=== PATIENT | male | born 1945 | race Caucasian/White ===

== ENCOUNTER 2017-08-19 12:56 | Emergency (ER) | payer MEDICARE ==
[~2017-08-19] VITALS: Ht 172.7 cm; Wt 93.2 kg
[~2017-08-19 12:56] MED LIST: OTC COUGH MED
[2017-08-19] MEDS ORDERED: COAL21.2 TP (13:31)
[2017-08-19 13:47] LABS: GLUCOSE,POINT OF CARE 100 MG/DL (70-110)
[2017-08-19] MEDS ORDERED: TOBRAMYCIN/DEXAMETHASONE 5 ML OPHTHALMIC SUSPENSION OD ONE (14:15)
[2017-08-19 15:04] LABS: BASOPHILS % (AUTO) 0.8 % (0.0-2.0); EOSINOPHILS % (AUTO) 2.3 % (1.0-6.0); HEMATOCRIT 41.3 % (41-53); LYMPHOCYTES # (AUTO) 1.5 K/uL (1.0-4.8); LYMPHOCYTES % (AUTO) 19.7 % (22.0-44.0); MEAN CORPUSCULAR HEMOGLOBIN 29.8 pg (26.0-34.0); MEAN CORPUSCULAR HGB CONC 33.9 G/dL (31.0-37.0); MEAN CORPUSCULAR VOLUME 88 fL (80-100); MONOCYTES # (AUTO) 0.5 K/uL (0.1-1.0); MONOCYTES % (AUTO) 6.3 % (2.0-9.0); NEUTROPHILS # (AUTO) 5.3 K/uL (1.8-7.7); NEUTROPHILS % (AUTO) 70.9 % (40.0-70.0); PLATELET COUNT (AUTO) 282 K/uL (150-450); RED BLOOD CELL COUNT(AUTO) 4.69 MIL/uL (4.50-5.90); RED CELL DISTRIBUTION WIDTH 14.8 % (11.5-14.5)
[2017-08-19 15:09] LABS: B-TYPE NATRIURETIC PEPTIDE 30 pg/mL (0-100)
[2017-08-19 15:10] LABS: ANION GAP 4 mmol/L (8-16); CARBON DIOXIDE 30 mmol/L (22-29); CHLORIDE 105 mmol/L (98-107); CREATININE 1.53 mg/dL (0.60-1.30); GLOMERULAR FILTR. RATE CALC 45 mL/min (>60); GLUCOSE,RANDOM 103 mg/dL (70-110); POTASSIUM 4.5 mmol/L (3.5-5.1); SODIUM SERUM 139 mmol/L (136-145); UREA NITROGEN, BLOOD 19 mg/dL (7-18)
[2017-08-19 15:15] LABS: PROTHROMBIN TIME 10.9 SEC (9.4-11.6)
[2017-08-19 15:16] LABS: ALANINE AMINOTRANSFERASE 32 U/L (12-78); ALBUMIN 3.7 g/dL (3.4-5.0); ALKALINE PHOSPHATASE 65 U/L (46-116); ASPARTATE AMINOTRANSFERASE 29 U/L (15-37); BILIRUBIN,TOTAL 0.6 mg/dL (0.1-1.0); CREATINE KINASE, TOTAL 70 U/L (39-308); TOTAL PROTEIN, SERUM 8.4 g/dL (6.4-8.2)
[2017-08-19] MEDS ORDERED: LISINOPRIL 10 MG TABLET PO ONE ×2 (15:30→16:45)
[2017-08-19 15:59] LABS: APPEARANCE,URINE CLEAR (CLEAR); BILIRUBIN,URINE NEGATIVE (NEGATIVE); GLUCOSE, URINE (UA) NEGATIVE (NEGATIVE); KETONES,URINE NEGATIVE (NEGATIVE); LEUKOCYTE ESTERASE ,URINE NEGATIVE (NEGATIVE); NITRATE,URINE NEGATIVE (NEGATIVE); OCCULT BLOOD,URINE SMALL (NEGATIVE); PROTEIN,URINE POS 1+ (NEGATIVE); UROBILINOGEN,URINE 0.2 mg/dL (<=1.0)
[2017-08-19 16:30] LABS: BACTERIA,URINE Few /HPF (None Seen); SQUAMOUS EPITHELIAL CELL,UR Rare /LPF (None Seen); WBC,URINE None Seen /HPF (0-5)
[2017-08-19] MEDS ORDERED: LABETALOL HCL 5 MG/ML 20 ML VIAL IVP ONE (16:45)
[2017-08-19 18:13] VITALS: BP 177/111
== END 2017-08-19 18:35 | disposition home or self-care (01) ==
LOC: EMS 13:00
DX: S05.01XA Injury of conjunctiva and corneal abrasion without foreign body, right eye, initial encounter (principal); I10 Essential (primary) hypertension; L40.9 Psoriasis, unspecified; Z79.899 Other long term (current) drug therapy; X58.XXXA Exposure to other specified factors, initial encounter; Y93.89 Activity, other specified; Y92.89 Other specified places as the place of occurrence of the external cause; Y99.8 Other external cause status
CPT/HCPCS: 36415; 71010; 80053; 81001; 82550; 82962; 83880; 84484; 85025; 85610; 85730; 93005; 96374; 99285; J3490

== ENCOUNTER 2017-10-17 20:18 | Emergency (ER) | payer MEDICARE ==
[~2017-10-17] VITALS: Ht 172.7 cm; Wt 95.5 kg
[~2017-10-17 20:18] MED LIST changes: +COAL21.2 TP
[2017-10-17] MEDS ORDERED: PROPRANOLOL HCL 10 MG TABLET PO ONE (21:15)
[2017-10-17] MEDS ORDERED: TERBINAFINE HCL 1% 30 GM CREAM TP ONE (21:15)
[2017-10-17 21:37] LABS: BASOPHILS % (AUTO) 0.9 % (0.0-2.0); EOSINOPHILS % (AUTO) 1.2 % (1.0-6.0); HEMATOCRIT 37.9 % (41-53); HEMOGLOBIN 12.8 g/dL (13.5-17.5); LYMPHOCYTES # (AUTO) 0.5 K/uL (1.0-4.8); LYMPHOCYTES % (AUTO) 6.1 % (22.0-44.0); MEAN CORPUSCULAR HEMOGLOBIN 28.9 pg (26.0-34.0); MEAN CORPUSCULAR HGB CONC 33.9 G/dL (31.0-37.0); MEAN CORPUSCULAR VOLUME 85 fL (80-100); MONOCYTES # (AUTO) 0.9 K/uL (0.1-1.0); MONOCYTES % (AUTO) 11.9 % (2.0-9.0); NEUTROPHILS % (AUTO) 79.9 % (40.0-70.0); PLATELET COUNT (AUTO) 234 K/uL (150-450); RED BLOOD CELL COUNT(AUTO) 4.44 MIL/uL (4.50-5.90); RED CELL DISTRIBUTION WIDTH 14.2 % (11.5-14.5)
[2017-10-17 21:47] LABS: CALCIUM, TOTAL 8.1 mg/dL (8.8-10.5); CREATININE 1.54 mg/dL (0.60-1.30); POTASSIUM 3.7 mmol/L (3.5-5.1)
[2017-10-17 21:52] LABS: ALBUMIN 3.4 g/dL (3.4-5.0); BILIRUBIN,TOTAL 0.4 mg/dL (0.1-1.0); TOTAL PROTEIN, SERUM 7.4 g/dL (6.4-8.2)
[2017-10-17] MEDS ORDERED: CEPHALEXIN MONOHYDRATE 500 MG CAPSULE PO ONE (22:30)
[2017-10-17] MEDS ORDERED: HYDROCHLOROTHIAZIDE 25 MG TABLET PO ONE (23:15)
[2017-10-18] MEDS ORDERED: LISINOPRIL 10 MG TABLET PO ONE ×2 (00:45)
[2017-10-18] MEDS ORDERED: PROPRANOLOL HCL 10 MG TABLET PO ONE (00:45)
[2017-10-18] MEDS ORDERED: PROPRANOLOL HCL 40 MG TABLET PO ONE (01:00)
[2017-10-18 07:59] VITALS: BP 130/86
== END 2017-10-18 09:22 | disposition home or self-care (01) ==
LOC: EMS 20:19
DX: N39.0 Urinary tract infection, site not specified (principal); L40.9 Psoriasis, unspecified; B37.2 Candidiasis of skin and nail; I10 Essential (primary) hypertension; F12.90 Cannabis use, unspecified, uncomplicated
CPT/HCPCS: 99284

== ENCOUNTER 2017-10-21 13:56 | Emergency (ER) | payer MEDICARE ==
[~2017-10-21] VITALS: Ht 172.7 cm; Wt 93.2 kg
[2017-10-21 14:42] LABS: BASOPHILS % (AUTO) 0.8 % (0.0-2.0); EOSINOPHILS % (AUTO) 2.8 % (1.0-6.0); HEMATOCRIT 39.8 % (41-53); HEMOGLOBIN 13.3 g/dL (13.5-17.5); LYMPHOCYTES # (AUTO) 1.3 K/uL (1.0-4.8); MEAN CORPUSCULAR HEMOGLOBIN 28.9 pg (26.0-34.0); MEAN CORPUSCULAR HGB CONC 33.5 G/dL (31.0-37.0); MEAN CORPUSCULAR VOLUME 86 fL (80-100); MONOCYTES # (AUTO) 0.7 K/uL (0.1-1.0); NEUTROPHILS # (AUTO) 2.3 K/uL (1.8-7.7); NEUTROPHILS % (AUTO) 51.4 % (40.0-70.0); PLATELET COUNT (AUTO) 237 K/uL (150-450); RED BLOOD CELL COUNT(AUTO) 4.62 MIL/uL (4.50-5.90); RED CELL DISTRIBUTION WIDTH 14.2 % (11.5-14.5)
[2017-10-21 14:51] LABS: CALCIUM, TOTAL 8.6 mg/dL (8.8-10.5); CREATININE 1.65 mg/dL (0.60-1.30); POTASSIUM 4.1 mmol/L (3.5-5.1)
[2017-10-21 14:57] LABS: ALBUMIN 3.3 g/dL (3.4-5.0); BILIRUBIN,TOTAL 0.3 mg/dL (0.1-1.0); TOTAL PROTEIN, SERUM 7.5 g/dL (6.4-8.2)
[2017-10-21 15:26] LABS: INFLUENZA TYPE A NEGATIVE FOR TYPE A (NEGATIVE); INFLUENZA TYPE B NEGATIVE FOR TYPE B (NEGATIVE)
[2017-10-21] MEDS: IPRATROPIUM BROMIDE 0.5 MG/2.5 ML NEB SOLUTION NEB ONE (16:08)
[2017-10-21] MEDS: ALBUTEROL SULFATE 2.5 MG/0.5 ML NEB SOLUTION NEB ONE (16:08)
[2017-10-21] MEDS: ALBUTEROL SULFATE HFA 90 MCG/PUFF 8 GM INHALER IH ONE (16:09)
[2017-10-21 16:23] VITALS: BP 147/89
[2017-10-21] MEDS: OSELTAMIVIR PHOSPHATE 75 MG CAPSULE PO ONE (16:31)
== END 2017-10-21 16:56 | disposition home or self-care (01) ==
LOC: EMS 13:58
DX: J06.9 Acute upper respiratory infection, unspecified (principal); I10 Essential (primary) hypertension
CPT/HCPCS: 71046; 87040; 87804; 93005; 94640; 99285; J3535

== ENCOUNTER 2018-10-23 11:04 | Emergency (ER) | payer MEDICARE, MEDICAID ==
[~2018-10-23] VITALS: Ht 172.7 cm; Wt 86.5 kg
[2018-10-23] MEDS ORDERED: CloNIDine HCL 0.2 MG TABLET PO ONE (12:15)
[2018-10-23] MEDS ORDERED: HYDROCODONE/ACETAMINOPHEN 5-325 MG TABLET PO ONE ×2 (13:45→16:45)
[2018-10-23 19:27] VITALS: BP 133/79
== END 2018-10-23 20:11 | disposition home or self-care (01) ==
LOC: EMS 11:05
DX: S01.01XA Laceration without foreign body of scalp, initial encounter (principal); I10 Essential (primary) hypertension; F12.90 Cannabis use, unspecified, uncomplicated; Z59.0 Homelessness; W01.0XXA Fall on same level from slipping, tripping and stumbling without subsequent striking against object, initial encounter; Y93.89 Activity, other specified; Y92.89 Other specified places as the place of occurrence of the external cause; Y99.8 Other external cause status
CPT/HCPCS: 12002; 70450

== ENCOUNTER 2018-11-29 14:54 | Emergency (ER) | payer MEDICARE, MEDICAID ==
[~2018-11-29] VITALS: Ht 172.7 cm; Wt 93.2 kg
[2018-11-29 15:48] VITALS: BP 154/56
== END 2018-11-29 15:57 | disposition home or self-care (01) ==
LOC: EMS 14:54
DX: S01.01XD Laceration without foreign body of scalp, subsequent encounter (principal); I10 Essential (primary) hypertension; F12.90 Cannabis use, unspecified, uncomplicated; Z48.02 Encounter for removal of sutures; X58.XXXD Exposure to other specified factors, subsequent encounter

== ENCOUNTER 2019-07-30 18:41 | Emergency (ER) | payer MEDICARE, MEDICAID ==
[~2019-07-30] VITALS: Ht 175.3 cm; Wt 86.4 kg
[2019-07-30] MEDS ORDERED: LIDOCAINE 5% TRANSDERMAL PATCH TD ONE (23:00)
[2019-07-30] MEDS ORDERED: IBUPROFEN 600 MG TABLET PO ONE (23:00)
[2019-07-30 23:44] VITALS: BP 145/80
== END 2019-07-30 23:45 | disposition home or self-care (01) ==
LOC: EMS 18:43
DX: S40.012A Contusion of left shoulder, initial encounter (principal); M12.812 Other specific arthropathies, not elsewhere classified, left shoulder; I10 Essential (primary) hypertension; F12.90 Cannabis use, unspecified, uncomplicated; Z59.0 Homelessness; X58.XXXA Exposure to other specified factors, initial encounter; Y93.89 Activity, other specified; Y92.89 Other specified places as the place of occurrence of the external cause; Y99.8 Other external cause status

== ENCOUNTER 2020-08-23 13:19 | Inpatient (IN) | payer MEDICARE, MEDICAID ==
[~2020-08-23] VITALS: Ht 172.7 cm; Wt 87.8 kg
[2020-08-23] MEDS ORDERED: ACETAMINOPHEN 325 MG TABLET PO ONE (14:15)
[2020-08-23 15:26] LABS: BASOPHILS % (AUTO) 0.8 % (0.0-2.0); EOSINOPHILS % (AUTO) 0.8 % (1.0-6.0); HEMATOCRIT 37.5 % (41-53); HEMOGLOBIN 12.5 g/dL (13.5-17.5); LYMPHOCYTES # (AUTO) 0.5 K/uL (1.0-4.8); LYMPHOCYTES % (AUTO) 4.9 % (22.0-44.0); MEAN CORPUSCULAR HEMOGLOBIN 29.8 pg (26.0-34.0); MEAN CORPUSCULAR HGB CONC 33.2 G/dL (31.0-37.0); MEAN CORPUSCULAR VOLUME 90 fL (80-100); MONOCYTES # (AUTO) 0.7 K/uL (0.1-1.0); MONOCYTES % (AUTO) 6.8 % (2.0-9.0); NEUTROPHILS # (AUTO) 8.9 K/uL (1.8-7.7); PLATELET COUNT (AUTO) 260 K/uL (150-450); RED BLOOD CELL COUNT(AUTO) 4.18 MIL/uL (4.50-5.90); RED CELL DISTRIBUTION WIDTH 13.8 % (11.5-14.5)
[2020-08-23 15:28] LABS: NEUTROPHILS % (AUTO) 86.7 % (40.0-70.0)
[2020-08-23 15:29] LABS: COVID AG,FIA SOURCE NASOPHARYNGEAL
[2020-08-23 15:36] LABS: CALCIUM, TOTAL 8.4 mg/dL (8.8-10.5); CREATININE 1.93 mg/dL (0.60-1.30)
[2020-08-23 15:40] LABS: PROTHROMBIN TIME 11.1 SEC (9.4-11.6)
[2020-08-23 15:43] LABS: ALBUMIN 3.5 g/dL (3.4-5.0); BILIRUBIN,TOTAL 0.5 mg/dL (0.1-1.0); TOTAL PROTEIN, SERUM 7.9 g/dL (6.4-8.2)
[2020-08-23] MEDS ORDERED: SODIUM CHLORIDE 0.9% 500 ML IV ONE (16:00)
[2020-08-23 16:05] LABS: INFLUENZA TYPE A NEGATIVE FOR TYPE A (NEGATIVE); INFLUENZA TYPE B NEGATIVE FOR TYPE B (NEGATIVE)
[2020-08-23] MEDS ORDERED: PIPERACILLIN SODIUM/TAZOBACTAM 2.25 GM in DEXTROSE 5%-WATER 50 ML IV SCH (16:30)
[2020-08-23] MEDS ORDERED: VANCOMYCIN HCL 1.5 GM in DEXTROSE 5%-WATER 250 ML IV ONE (17:00)
[2020-08-23] MEDS ORDERED: MORPHINE SULFATE 2 MG/ML SYRINGE IVP PRN (17:45)
[2020-08-23] MEDS ORDERED: ONDANSETRON HCL 4 MG/2 ML VIAL IVP PRN (17:45)
[2020-08-23] MEDS ORDERED: IPRATROPIUM BROMIDE 0.5 MG/2.5 ML NEB SOLUTION NEB PRN (17:45)
[2020-08-23] MEDS ORDERED: SODIUM CHLORIDE 0.9% 1,000 ML IV ONE (17:45)
[2020-08-23] MEDS ORDERED: BISACODYL 10 MG RECTAL RECTAL SUPPOSITORY PR PRN (17:45)
[2020-08-23] MEDS ORDERED: HYDROCODONE/ACETAMINOPHEN 5-325 MG TABLET PO PRN (17:45)
[2020-08-23] MEDS ORDERED: MAGNESIUM HYDROXIDE SUSPENSION 30 ML UDCUP PO PRN (17:45)
[2020-08-23] MEDS ORDERED: ALBUTEROL SULFATE 2.5 MG/0.5 ML NEB SOLUTION NEB PRN (17:45)
[2020-08-23] MEDS ORDERED: ACETAMINOPHEN 325 MG TABLET PO PRN (17:45)
[2020-08-23] MEDS ORDERED: ZOLPIDEM TARTRATE 5 MG TABLET PO PRN (17:45)
[2020-08-23] MEDS ORDERED: INFLUENZA VIRUS VACCINE QVS 2020-21 (6MO+)/PF 60 MCG/0.5 ML SYRINGE IM ONE (18:00)
[2020-08-23] MEDS ORDERED: PNEUMOCOCCAL VACCINE POLYVALENT 0.5 ML VIAL [PPSV23] IM ONE (18:00)
[2020-08-23 18:02] VITALS: BP 175/94
[2020-08-23 20:30] VITALS: BP 157/84
[2020-08-23] MEDS: DOCUSATE SODIUM 100 MG CAPSULE PO SCH (20:34)
[2020-08-23] MEDS: AZITHROMYCIN 500 MG/NS 250 ML IV SCH (22:35)
[2020-08-23] MEDS: HEPARIN SODIUM,PORCINE 5,000 UNITS/ML VIAL SQ SCH (23:13)
[2020-08-24] MEDS ORDERED: AmLODIPine BESYLATE 10 MG TABLET PO ONE (00:45)
[2020-08-24 00:55] VITALS: BP 184/92
[2020-08-24] MEDS: CefTRIAXone 1 GM/DEXTROSE 50 ML IV SCH (02:11)
[2020-08-24 05:45] VITALS: BP 146/77
[2020-08-24 06:37] LABS: BASOPHILS % (AUTO) 1.2 % (0.0-2.0); EOSINOPHILS % (AUTO) 12.3 % (1.0-6.0); HEMATOCRIT 33.7 % (41-53); HEMOGLOBIN 11.3 g/dL (13.5-17.5); LYMPHOCYTES # (AUTO) 1.3 K/uL (1.0-4.8); LYMPHOCYTES % (AUTO) 16.8 % (22.0-44.0); MEAN CORPUSCULAR HEMOGLOBIN 30.3 pg (26.0-34.0); MEAN CORPUSCULAR HGB CONC 33.6 G/dL (31.0-37.0); MEAN CORPUSCULAR VOLUME 90 fL (80-100); MONOCYTES # (AUTO) 0.8 K/uL (0.1-1.0); MONOCYTES % (AUTO) 10.6 % (2.0-9.0); NEUTROPHILS # (AUTO) 4.7 K/uL (1.8-7.7); NEUTROPHILS % (AUTO) 59.1 % (40.0-70.0); PLATELET COUNT (AUTO) 228 K/uL (150-450); RED BLOOD CELL COUNT(AUTO) 3.73 MIL/uL (4.50-5.90); RED CELL DISTRIBUTION WIDTH 14.1 % (11.5-14.5)
[2020-08-24 07:03] LABS: ALBUMIN 2.9 g/dL (3.4-5.0); BILIRUBIN,TOTAL 0.5 mg/dL (0.1-1.0); CALCIUM, TOTAL 7.7 mg/dL (8.8-10.5); CREATININE 1.82 mg/dL (0.60-1.30); POTASSIUM 3.9 mmol/L (3.5-5.1); TOTAL PROTEIN, SERUM 6.4 g/dL (6.4-8.2)
[2020-08-24 07:42] VITALS: BP 149/72
[2020-08-24] MEDS: DOCUSATE SODIUM 100 MG CAPSULE PO SCH ×3 (08:08→22:07)
[2020-08-24] MEDS: HEPARIN SODIUM,PORCINE 5,000 UNITS/ML VIAL SQ SCH ×2 (08:08→14:46)
[2020-08-24] MEDS: AmLODIPine BESYLATE 5 MG TABLET PO SCH (08:09)
[2020-08-24 12:10] VITALS: BP 144/73
[2020-08-24] MEDS ORDERED: METOPROLOL TARTRATE 25 MG TABLET PO ONE (13:00)
[2020-08-24 16:01] VITALS: BP 153/94
[2020-08-24 19:39] VITALS: BP 146/78
[2020-08-24] MEDS: METOPROLOL TARTRATE 25 MG TABLET PO SCH (22:06)
[2020-08-24] MEDS: AZITHROMYCIN 500 MG/NS 250 ML IV SCH (22:06)
[2020-08-24] MEDS ORDERED: SODIUM CHLORIDE 0.9% 250 ML IV ONE (22:11)
[2020-08-25] VITALS (7 sets, daily range): BP systolic 143–183; BP diastolic 76–91
[2020-08-25] MEDS: HEPARIN SODIUM,PORCINE 5,000 UNITS/ML VIAL SQ SCH ×3 (01:02→16:00)
[2020-08-25] MEDS: CefTRIAXone 1 GM/DEXTROSE 50 ML IV SCH (02:17)
[2020-08-25 06:36] LABS: HEMATOCRIT 35.7 % (41-53); HEMOGLOBIN 11.7 g/dL (13.5-17.5); MEAN CORPUSCULAR HEMOGLOBIN 29.5 pg (26.0-34.0); MEAN CORPUSCULAR HGB CONC 32.6 G/dL (31.0-37.0); MEAN CORPUSCULAR VOLUME 90 fL (80-100); PLATELET COUNT (AUTO) 256 K/uL (150-450); RED BLOOD CELL COUNT(AUTO) 3.95 MIL/uL (4.50-5.90); RED CELL DISTRIBUTION WIDTH 13.7 % (11.5-14.5)
[2020-08-25 07:43] LABS: ALBUMIN 2.9 g/dL (3.4-5.0); BILIRUBIN,TOTAL 0.3 mg/dL (0.1-1.0); CREATININE 1.76 mg/dL (0.60-1.30); TOTAL PROTEIN, SERUM 6.8 g/dL (6.4-8.2)
[2020-08-25] MEDS: METOPROLOL TARTRATE 25 MG TABLET PO SCH ×2 (07:55→19:34)
[2020-08-25] MEDS: DOCUSATE SODIUM 100 MG CAPSULE PO SCH ×2 (07:55→19:34)
[2020-08-25] MEDS: AmLODIPine BESYLATE 5 MG TABLET PO SCH (07:55)
[2020-08-25] MEDS ORDERED: BETAMETHASONE VAL 0.1% 15 GM OINTMENT TP SCH (09:00)
[2020-08-25 09:08] LABS: BAND NEUTROPHILS % (MANUAL) 0 % (0-5)
[2020-08-25 09:10] LABS: EOSINOPHILS % (MANUAL) 17 % (1-6); LYMPHOCYTES % (MANUAL) 33 % (22-44); MONOCYTES % (MANUAL) 8 % (2-9); SEGMENTED NEUTROPHILS % 42 % (40-70)
[2020-08-25] MEDS ORDERED: NIFE-39 PO (16:29)
[2020-08-25] MEDS ORDERED: NIFEdipine 30 MG ER TABLET PO ONE (16:30)
[2020-08-25] MEDS ORDERED: METO25 PO (16:31)
[2020-08-25] MEDS ORDERED: AMOX1TAB16 PO (16:32)
[2020-08-25] MEDS ORDERED: HYDR30CR3 TP (16:34)
[2020-08-25] MEDS: BETAMETHASONE VAL 0.1% 15 GM CREAM TP SCH ×2 (17:20→19:39)
[2020-08-25] MEDS: AZITHROMYCIN 500 MG/NS 250 ML IV SCH (22:00)
[2020-08-26 00:21] VITALS: BP 156/76
[2020-08-26] MEDS: CefTRIAXone 1 GM/DEXTROSE 50 ML IV SCH (02:52)
[2020-08-26 04:26] VITALS: BP 145/79
[2020-08-26 07:25] VITALS: BP 140/72
[2020-08-26] MEDS: DOCUSATE SODIUM 100 MG CAPSULE PO SCH (07:42)
[2020-08-26] MEDS: HEPARIN SODIUM,PORCINE 5,000 UNITS/ML VIAL SQ SCH ×2 (07:42)
[2020-08-26] MEDS: BETAMETHASONE VAL 0.1% 15 GM CREAM TP SCH (07:44)
[2020-08-26] MEDS: METOPROLOL TARTRATE 25 MG TABLET PO SCH (07:44)
[2020-08-26] MEDS: AmLODIPine BESYLATE 5 MG TABLET PO SCH (07:44)
[2020-08-26 11:05] VITALS: BP 149/90
== END 2020-08-26 11:20 | disposition home or self-care (01) | DRG 194 ==
LOC: EMS 13:19 → 5N 17:45 → 5S 08-25 10:25
PROVIDERS: ADMIT Hospitalist; ATTEND Hospitalist
DX: J18.9 Pneumonia, unspecified organism (principal); E87.1 Hypo-osmolality and hyponatremia; N17.9 Acute kidney failure, unspecified; I12.9 Hypertensive chronic kidney disease with stage 1 through stage 4 chronic kidney disease, or unspecified chronic kidney disease; N18.9 Chronic kidney disease, unspecified; N40.0 Benign prostatic hyperplasia without lower urinary tract symptoms; Z20.828 Contact with and (suspected) exposure to other viral communicable diseases; F12.90 Cannabis use, unspecified, uncomplicated; L40.9 Psoriasis, unspecified; Z59.0 Homelessness; Z28.21 Immunization not carried out because of patient refusal
CPT/HCPCS: 83605; 87040; 87426; 87804; 93005; 93306; J0456; J0696; J1644; J2543; J3370; J7030; J7050; J7060; 36415-L1; 36415-TC; 71045-TC; U0003

== ENCOUNTER 2021-04-11 12:56 | Inpatient (IN) | payer MEDICARE, MEDICAID ==
[~2021-04-11] VITALS: Ht 175.3 cm; Wt 80.2 kg
[~2021-04-11 12:56] MED LIST changes: +ACET-2247 PO; +ASPI-1450 PO; +ATOR40TA28 PO; +AUD NEB; +BISA-151 PO; -COAL21.2 TP; +DOCU-270 PO; +DOXY100I IV; +HYDR30CR3 TP; +METO25 PO; +NIFE-39 PO; +ONDA-104 IVP; -OTC COUGH MED; +PANT-31 PO; +TICA90TA PO; +[UNRECOGNIZED DRUG - CODE] IV
[2021-04-11] MEDS ORDERED: SODIUM CHLORIDE 0.9% 1,000 ML IV ONE ×2 (13:15→21:30)
[2021-04-11] MEDS ORDERED: ACETAMINOPHEN 1000 MG/ISO-OSM 100 ML IV ONE (13:15)
[2021-04-11] MEDS ORDERED: CEFEPIME HCL 1 GM in DEXTROSE 5%-WATER 50 ML IV ONE (13:15)
[2021-04-11 13:48] LABS: BASOPHILS % (AUTO) 0.1 % (0.0-2.0); EOSINOPHILS % (AUTO) 0 % (1.0-6.0); HEMATOCRIT 39.4 % (41-53); HEMOGLOBIN 12.6 g/dL (13.5-17.5); LYMPHOCYTES # (AUTO) 0.3 K/uL (1.0-4.8); LYMPHOCYTES % (AUTO) 1.4 % (22.0-44.0); MEAN CORPUSCULAR HEMOGLOBIN 28.7 pg (26.0-34.0); MEAN CORPUSCULAR HGB CONC 31.9 G/dL (31.0-37.0); MEAN CORPUSCULAR VOLUME 90 fL (80-100); MONOCYTES # (AUTO) 1.5 K/uL (0.1-1.0); MONOCYTES % (AUTO) 6.6 % (2.0-9.0); NEUTROPHILS # (AUTO) 20.6 K/uL (1.8-7.7); PLATELET COUNT (AUTO) 199 K/uL (150-450); RED BLOOD CELL COUNT(AUTO) 4.38 MIL/uL (4.50-5.90)
[2021-04-11 13:51] LABS: NEUTROPHILS % (AUTO) 91.9 % (40.0-70.0)
[2021-04-11 13:59] LABS: ANION GAP 20 mmol/L (8-16); CALCIUM, TOTAL 8.5 mg/dL (8.8-10.5); CARBON DIOXIDE 18 mmol/L (22-29); CHLORIDE 106 mmol/L (98-107); CREATININE 3.43 mg/dL (0.60-1.30); GLOMERULAR FILTR. RATE CALC 18 mL/min (>60); GLUCOSE,RANDOM 118 mg/dL (70-110); POTASSIUM 3.4 mmol/L (3.5-5.1); SODIUM SERUM 144 mmol/L (136-145); UREA NITROGEN, BLOOD 33 mg/dL (7-18)
[2021-04-11] MEDS ORDERED: VANCOMYCIN HCL 1 GM/D5% WATER 200 ML IV ONE (14:00)
[2021-04-11] MEDS ORDERED: NOREPINEPHRINE 4 MG/D5%-WATER 250 ML IV PRN ×2 (14:00→21:30)
[2021-04-11 14:01] LABS: INR 1.2 (0.9-1.1); PROTHROMBIN TIME 12.4 SEC (9.4-11.6)
[2021-04-11 14:15] LABS: ALANINE AMINOTRANSFERASE 19 U/L (12-78); ALBUMIN 2.7 g/dL (3.4-5.0); ALKALINE PHOSPHATASE 60 U/L (46-116); ASPARTATE AMINOTRANSFERASE 33 U/L (15-37); BILIRUBIN,TOTAL 0.5 mg/dL (0.1-1.0); TOTAL PROTEIN, SERUM 6.3 g/dL (6.4-8.2)
[2021-04-11] MEDS ORDERED: ONDANSETRON HCL 4 MG/2 ML VIAL IVP PRN ×2 (14:15→16:45)
[2021-04-11] MEDS ORDERED: 0.9% SODIUM CHLORIDE 10 ML SYRINGE IVP PRN (14:15)
[2021-04-11] MEDS ORDERED: ACETAMINOPHEN 325 MG TABLET PO PRN ×2 (14:15→16:45)
[2021-04-11 14:21] LABS: ABG BASE EXCESS -8.4 mmol/L (-2.0-3.0); ABG HCO3 18.9 mmol/L (22.0-26.0); ABG PCO2 32 mmHg (35-45); ABG PH 7.342 (7.35-7.450); ABG TOTAL HEMOGLOBIN 13.2 G/dL (12.0-18.0); PO2, ARTERIAL BG 401.7 mmHg (75.0-83.0); SITE, BLOOD GAS LFT BRACHIAL; SOURCE, BLOOD GAS ARTERIAL; TEMPERATURE, FAHRENHEIT, BG 104.3 FAHREN (96.0-98.6)
[2021-04-11 14:22] LABS: ABG CARBOXYHEMOGLOBIN 0.1 % (0.0-1.5); ABG METHEMOGLOBIN 0.4 % (0.0-1.5); ABG OXYGEN CONTENT 19.3 mL/dL (15.0-23.0); ABG OXYGEN SATURATION 99.3 % (95.0-98.0); ABG OXYHEMOGLOBIN 98.8 % (94.0-100.0)
[2021-04-11 14:23] LABS: O2 DEVICE,BLOOD GAS BIPAP (ROOM AIR); SPONTANEOUS VT, BG 870 ml
[2021-04-11 14:24] LABS: INSPIRATORY TIME, BG 0.9 SEC
[2021-04-11 14:27] LABS: COVID AG,FIA SOURCE NASAL SWAB
[2021-04-11 14:39] LABS: B-TYPE NATRIURETIC PEPTIDE 1420 pg/mL (0-100)
[2021-04-11 15:06] LABS: INFLUENZA TYPE A NEGATIVE FOR TYPE A (NEGATIVE); INFLUENZA TYPE B NEGATIVE FOR TYPE B (NEGATIVE)
[2021-04-11 15:19] LABS: BAND NEUTROPHILS % (MANUAL) 24 % (0-5); LYMPHOCYTES % (MANUAL) 3 % (22-44); MONOCYTES % (MANUAL) 4 % (2-9); SEGMENTED NEUTROPHILS % 69 % (40-70)
[2021-04-11 16:20] LABS: APPEARANCE,URINE TURBID (CLEAR); GLUCOSE, URINE (UA) NEGATIVE (NEGATIVE); KETONES,URINE 15 mg/dL (NEGATIVE); LEUKOCYTE ESTERASE ,URINE MODERATE (NEGATIVE); NITRATE,URINE POSITIVE (NEGATIVE); OCCULT BLOOD,URINE LARGE (NEGATIVE); PROTEIN,URINE SEE CONFIRM (NEGATIVE)
[2021-04-11 16:27] LABS: BILIRUBIN,URINE PRELIM. POSITIVE (NEGATIVE)
[2021-04-11] MEDS ORDERED: BISACODYL 10 MG RECTAL RECTAL SUPPOSITORY PR PRN (16:45)
[2021-04-11] MEDS ORDERED: MAGNESIUM HYDROXIDE SUSPENSION 30 ML UDCUP PO PRN (16:45)
[2021-04-11] MEDS ORDERED: ZOLPIDEM TARTRATE 5 MG TABLET PO PRN (16:45)
[2021-04-11] MEDS ORDERED: HYDROCODONE/ACETAMINOPHEN 5-325 MG TABLET PO PRN (16:45)
[2021-04-11] MEDS ORDERED: HEPARIN SODIUM,PORCINE 5,000 UNITS/ML VIAL IVP PRN (16:45)
[2021-04-11] MEDS ORDERED: MORPHINE SULFATE 2 MG/ML SYRINGE IVP PRN (16:45)
[2021-04-11 17:50] LABS: BASOPHILS % (AUTO) 0.2 % (0.0-2.0); EOSINOPHILS % (AUTO) 0.1 % (1.0-6.0); HEMOGLOBIN 13.7 g/dL (13.5-17.5); LYMPHOCYTES # (AUTO) 0.3 K/uL (1.0-4.8); LYMPHOCYTES % (AUTO) 4.6 % (22.0-44.0); MEAN CORPUSCULAR HEMOGLOBIN 29.1 pg (26.0-34.0); MEAN CORPUSCULAR HGB CONC 31.8 G/dL (31.0-37.0); MEAN CORPUSCULAR VOLUME 91 fL (80-100); MONOCYTES # (AUTO) 0.1 K/uL (0.1-1.0); MONOCYTES % (AUTO) 1.8 % (2.0-9.0); PLATELET COUNT (AUTO) 138 K/uL (150-450); RED CELL DISTRIBUTION WIDTH 15.4 % (11.5-14.5)
[2021-04-11 17:57] LABS: NEUTROPHILS % (AUTO) 93.3 % (40.0-70.0)
[2021-04-11 18:04] LABS: SULFOSALICYLIC ACID,URINE 3+ (Negative)
[2021-04-11 18:05] LABS: SQUAMOUS EPITHELIAL CELL,UR Few /LPF (None Seen)
[2021-04-11 18:07] LABS: BACTERIA,URINE Many /HPF (None Seen); RBC,URINE >100 /HPF (0-2); WBC,URINE 51-100 /HPF (0-5)
[2021-04-11 18:11] LABS: INR 1.2 (0.9-1.1); PROTHROMBIN TIME 12.6 SEC (9.4-11.6)
[2021-04-11] MEDS: HEPARIN SODIUM 25000 UNITS/D5W 250 ML IV PRN (18:31)
[2021-04-11 19:19] LABS: BAND NEUTROPHILS % (MANUAL) 34 % (0-5); LYMPHOCYTES % (MANUAL) 5 % (22-44); MONOCYTES % (MANUAL) 5 % (2-9); SEGMENTED NEUTROPHILS % 56 % (40-70)
[2021-04-11] MEDS: NOREPINEPHRINE 4 MG/D5%-WATER 250 ML IV PRN (19:55)
[2021-04-11] MEDS: ATORVASTATIN CALCIUM 40 MG TABLET PO SCH (21:00)
[2021-04-11] MEDS: DOCUSATE SODIUM 100 MG CAPSULE PO SCH (21:00)
[2021-04-11] MEDS: PHENYLEPHRINE 200 MG/D5%-WATER 250 ML IV PRN (22:13)
[2021-04-12] VITALS (7 sets, daily range): BP systolic 96–122; BP diastolic 52–74
[2021-04-12] MEDS: NOREPINEPHRINE 4 MG/D5%-WATER 250 ML IV PRN ×4 (01:07→19:30)
[2021-04-12 06:02] LABS: MEAN CORPUSCULAR HGB CONC 31.7 G/dL (31.0-37.0); MEAN CORPUSCULAR VOLUME 92 fL (80-100); PLATELET COUNT (AUTO) 130 K/uL (150-450); RED BLOOD CELL COUNT(AUTO) 4.48 MIL/uL (4.50-5.90); RED CELL DISTRIBUTION WIDTH 15.3 % (11.5-14.5)
[2021-04-12 06:04] LABS: ALBUMIN 2.6 g/dL (3.4-5.0); BILIRUBIN,TOTAL 0.7 mg/dL (0.1-1.0); CALCIUM, TOTAL 8.2 mg/dL (8.8-10.5); CREATININE 3.56 mg/dL (0.60-1.30); POTASSIUM 3.3 mmol/L (3.5-5.1); TOTAL PROTEIN, SERUM 6.4 g/dL (6.4-8.2)
[2021-04-12] MEDS ORDERED: SODIUM CHLORIDE 0.9% 250 ML IV ONE ×2 (06:20→22:14)
[2021-04-12] MEDS: PIPERACILLIN SODIUM/TAZOBACTAM 2.25 GM in DEXTROSE 5%-WATER 50 ML IV SCH ×3 (06:21→22:27)
[2021-04-12 07:24] LABS: SEGMENTED NEUTROPHILS % 52 % (40-70)
[2021-04-12 07:25] LABS: BAND NEUTROPHILS % (MANUAL) 35 % (0-5); LYMPHOCYTES % (MANUAL) 6 % (22-44); MONOCYTES % (MANUAL) 7 % (2-9)
[2021-04-12] MEDS: ASPIRIN 81 MG CHEWABLE TABLET PO SCH ×2 (08:27→16:00)
[2021-04-12] MEDS: PANTOPRAZOLE SODIUM 40 MG DR TABLET PO SCH (08:28)
[2021-04-12] MEDS: DOCUSATE SODIUM 100 MG CAPSULE PO SCH ×2 (08:28→19:19)
[2021-04-12] MEDS ORDERED: VASOPRESSIN 40 UNITS in DEXTROSE 5%-WATER 98 ML IV PRN (12:45)
[2021-04-12] MEDS ORDERED: LEVOFLOXACIN 750 MG/D5% WATER 150 ML IV ONE (14:00)
[2021-04-12] MEDS: HEPARIN SODIUM 25000 UNITS/D5W 250 ML IV PRN (17:17)
[2021-04-12] MEDS: DEXTROSE 5%-0.45% SODIUM CHL 1,000 ML IV SCH (18:21)
[2021-04-12] MEDS: ATORVASTATIN CALCIUM 40 MG TABLET PO SCH (19:19)
[2021-04-12] MEDS: TICAGRELOR 90 MG TABLET PO SCH (19:19)
[2021-04-12 19:22] LABS: CALCIUM, TOTAL 7.7 mg/dL (8.8-10.5); MAGNESIUM 2.4 mg/dL (1.80-2.40); PHOSPHORUS 2.1 mg/dL (2.5-4.9); POTASSIUM 3.6 mmol/L (3.5-5.1)
[2021-04-12] MEDS: PHENYLEPHRINE 200 MG/D5%-WATER 250 ML IV PRN (20:09)
[2021-04-12] MEDS: SODIUM,POTASSIUM PHOSPHATES POWDER PACKET PO SCH (21:00)
[2021-04-13] VITALS: BP 127/77
[2021-04-13] MEDS: NOREPINEPHRINE 4 MG/D5%-WATER 250 ML IV PRN (02:24)
[2021-04-13 04:00] VITALS: BP 94/59
[2021-04-13 05:50] LABS: HEMATOCRIT 36.9 % (41-53); HEMOGLOBIN 12.1 g/dL (13.5-17.5); MEAN CORPUSCULAR HEMOGLOBIN 28.7 pg (26.0-34.0); MEAN CORPUSCULAR HGB CONC 32.7 G/dL (31.0-37.0); MEAN CORPUSCULAR VOLUME 88 fL (80-100); PLATELET COUNT (AUTO) 96 K/uL (150-450); RED CELL DISTRIBUTION WIDTH 15.3 % (11.5-14.5)
[2021-04-13 06:07] LABS: CREATININE 2.67 mg/dL (0.60-1.30); MAGNESIUM 2.3 mg/dL (1.80-2.40); PHOSPHORUS 2.1 mg/dL (2.5-4.9); POTASSIUM 3.6 mmol/L (3.5-5.1)
[2021-04-13] MEDS: PIPERACILLIN SODIUM/TAZOBACTAM 2.25 GM in DEXTROSE 5%-WATER 50 ML IV SCH ×3 (06:19→18:01)
[2021-04-13 06:51] LABS: CREATININE,URINE RANDOM 99.2 mg/dL (30.0-125.0); SODIUM,URINE RANDOM 27 mmol/l (20-110); UREA NITROGEN,URINE RANDOM 613 mg/dL (350-1000)
[2021-04-13 07:07] LABS: APPEARANCE,URINE CLOUDY (CLEAR); BILIRUBIN,URINE NEGATIVE (NEGATIVE); GLUCOSE, URINE (UA) NEGATIVE (NEGATIVE); KETONES,URINE TRACE mg/dL (NEGATIVE); LEUKOCYTE ESTERASE ,URINE MODERATE (NEGATIVE); NITRATE,URINE NEGATIVE (NEGATIVE); OCCULT BLOOD,URINE LARGE (NEGATIVE); PH,URINE 5.5 (5.0-8.0); PROTEIN,URINE POS 1+ (NEGATIVE); UROBILINOGEN,URINE 0.2 mg/dL (<=1.0)
[2021-04-13 07:32] LABS: BAND NEUTROPHILS % (MANUAL) 25 % (0-5); MONOCYTES % (MANUAL) 5 % (2-9); SEGMENTED NEUTROPHILS % 70 % (40-70)
[2021-04-13] MEDS: ATORVASTATIN CALCIUM 40 MG TABLET PO SCH (07:54)
[2021-04-13] MEDS: TICAGRELOR 90 MG TABLET PO SCH ×2 (07:54→19:39)
[2021-04-13] MEDS: ASPIRIN 81 MG CHEWABLE TABLET PO SCH ×2 (07:54)
[2021-04-13] MEDS: DOCUSATE SODIUM 100 MG CAPSULE PO SCH ×2 (07:54→19:40)
[2021-04-13] MEDS: PANTOPRAZOLE SODIUM 40 MG DR TABLET PO SCH (07:55)
[2021-04-13] MEDS: SODIUM,POTASSIUM PHOSPHATES POWDER PACKET PO SCH (07:55)
[2021-04-13 08:00] VITALS: BP 107/74
[2021-04-13 08:44] LABS: BACTERIA,URINE Few /HPF (None Seen); RBC,URINE 26-50 /HPF (0-2); SQUAMOUS EPITHELIAL CELL,UR Few /LPF (None Seen)
[2021-04-13] MEDS: METOPROLOL TARTRATE 25 MG TABLET PO SCH ×2 (08:50→19:40)
[2021-04-13] MEDS: DEXTROSE 5%-0.45% SODIUM CHL 1,000 ML IV SCH ×2 (08:50→22:42)
[2021-04-13] MEDS: MICONAZOLE NITRATE 2% 142 GM CREAM [BAZA] TP SCH (08:50)
[2021-04-13 12:00] VITALS: BP 105/60
[2021-04-13] MEDS ORDERED: SODIUM CHLORIDE 0.9% 250 ML IV ONE (15:53)
[2021-04-13 16:00] VITALS: BP 119/75
[2021-04-13 20:00] VITALS: BP 108/61
[2021-04-14] VITALS: BP 109/78
[2021-04-14] MEDS: PIPERACILLIN SODIUM/TAZOBACTAM 2.25 GM in DEXTROSE 5%-WATER 50 ML IV SCH ×3 (00:04→12:26)
[2021-04-14 04:00] VITALS: BP 100/64
[2021-04-14] MEDS: HEPARIN SODIUM,PORCINE 5,000 UNITS/ML VIAL IVP PRN (04:18)
[2021-04-14] MEDS: HEPARIN SODIUM 25000 UNITS/D5W 250 ML IV PRN (04:30)
[2021-04-14 05:37] LABS: HEMATOCRIT 32.8 % (41-53); HEMOGLOBIN 10.9 g/dL (13.5-17.5); MEAN CORPUSCULAR HEMOGLOBIN 29.2 pg (26.0-34.0); MEAN CORPUSCULAR HGB CONC 33.4 G/dL (31.0-37.0); MEAN CORPUSCULAR VOLUME 88 fL (80-100); PLATELET COUNT (AUTO) 76 K/uL (150-450); RED BLOOD CELL COUNT(AUTO) 3.74 MIL/uL (4.50-5.90); RED CELL DISTRIBUTION WIDTH 15.6 % (11.5-14.5)
[2021-04-14 06:10] LABS: ALBUMIN 2.1 g/dL (3.4-5.0); BILIRUBIN,TOTAL 0.8 mg/dL (0.1-1.0); CALCIUM, TOTAL 7.2 mg/dL (8.8-10.5); CREATININE 2.05 mg/dL (0.60-1.30); MAGNESIUM 2.4 mg/dL (1.80-2.40); PHOSPHORUS 1.6 mg/dL (2.5-4.9); POTASSIUM 3.5 mmol/L (3.5-5.1); TOTAL PROTEIN, SERUM 5.3 g/dL (6.4-8.2)
[2021-04-14 07:31] LABS: BAND NEUTROPHILS % (MANUAL) 18 % (0-5); LYMPHOCYTES % (MANUAL) 4 % (22-44); MONOCYTES % (MANUAL) 1 % (2-9); SEGMENTED NEUTROPHILS % 77 % (40-70)
[2021-04-14 08:00] VITALS: BP 112/54
[2021-04-14] MEDS: DOCUSATE SODIUM 100 MG CAPSULE PO SCH ×2 (09:00→20:44)
[2021-04-14] MEDS: TICAGRELOR 90 MG TABLET PO SCH ×2 (09:00→20:44)
[2021-04-14] MEDS: ATORVASTATIN CALCIUM 40 MG TABLET PO SCH (09:00)
[2021-04-14] MEDS: METOPROLOL TARTRATE 25 MG TABLET PO SCH ×2 (09:00→20:45)
[2021-04-14] MEDS: PANTOPRAZOLE SODIUM 40 MG DR TABLET PO SCH (09:00)
[2021-04-14] MEDS: ASPIRIN 81 MG CHEWABLE TABLET PO SCH (09:00)
[2021-04-14] MEDS ORDERED: HydrALAZINE HCL 20 MG/ML VIAL IVP PRN (09:30)
[2021-04-14] MEDS: MICONAZOLE NITRATE 2% 142 GM CREAM [BAZA] TP SCH (09:47)
[2021-04-14 12:00] VITALS: BP 103/64
[2021-04-14] MEDS ORDERED: SODIUM PHOS,M-BASIC-D-BASIC 10 MEQ in DEXTROSE 5%-WATER 50 ML IV ONE (12:00)
[2021-04-14] MEDS ORDERED: CALCIUM GLUCONATE 100 MG/ML 10 ML IVP ONE (12:00)
[2021-04-14] MEDS: DEXTROSE 5%-0.45% SODIUM CHL 1,000 ML IV SCH (13:45)
[2021-04-14] MEDS ORDERED: LEVOFLOXACIN 750 MG/D5% WATER 150 ML IV SCH (15:00)
[2021-04-14 16:00] VITALS: BP 109/69
[2021-04-14] MEDS ORDERED: HEPARIN SODIUM 25000 UNITS/D5W 250 ML IV PRN (17:30)
[2021-04-14 20:00] VITALS: BP 111/69
[2021-04-14] MEDS: MetroNIDAZOLE 500 MG/NACL 100 ML IV SCH (20:43)
[2021-04-15] VITALS: BP 125/77
[2021-04-15] MEDS: DEXTROSE 5%-0.45% SODIUM CHL 1,000 ML IV SCH (03:41)
[2021-04-15 04:00] VITALS: BP 120/74
[2021-04-15] MEDS: MetroNIDAZOLE 500 MG/NACL 100 ML IV SCH ×2 (04:45→13:09)
[2021-04-15 05:26] LABS: HEMATOCRIT 32.1 % (41-53); HEMOGLOBIN 10.7 g/dL (13.5-17.5); MEAN CORPUSCULAR HEMOGLOBIN 29.1 pg (26.0-34.0); MEAN CORPUSCULAR HGB CONC 33.4 G/dL (31.0-37.0); MEAN CORPUSCULAR VOLUME 87 fL (80-100); PLATELET COUNT (AUTO) 75 K/uL (150-450); RED BLOOD CELL COUNT(AUTO) 3.69 MIL/uL (4.50-5.90); RED CELL DISTRIBUTION WIDTH 15.5 % (11.5-14.5)
[2021-04-15 05:35] LABS: BILIRUBIN,TOTAL 0.6 mg/dL (0.1-1.0); CALCIUM, TOTAL 7.5 mg/dL (8.8-10.5); CREATININE 1.65 mg/dL (0.60-1.30); MAGNESIUM 2.1 mg/dL (1.80-2.40); PHOSPHORUS 1.7 mg/dL (2.5-4.9); TOTAL PROTEIN, SERUM 5.2 g/dL (6.4-8.2)
[2021-04-15] MEDS: HEPARIN SODIUM,PORCINE 5,000 UNITS/ML VIAL IVP PRN (05:43)
[2021-04-15 06:44] LABS: BAND NEUTROPHILS % (MANUAL) 19 % (0-5); LYMPHOCYTES % (MANUAL) 6 % (22-44); MONOCYTES % (MANUAL) 4 % (2-9); SEGMENTED NEUTROPHILS % 71 % (40-70)
[2021-04-15] MEDS ORDERED: POTASSIUM CHLORIDE 20 MEQ ER TABLET PO ONE (08:30)
[2021-04-15] MEDS ORDERED: POTASSIUM PHOS,M-BASIC-D-BASIC 20 MEQ in DEXTROSE 5%-WATER 100 ML IV ONE (08:30)
[2021-04-15] MEDS ORDERED: CALCIUM GLUCONATE 100 MG/ML 10 ML IVP ONE (08:30)
[2021-04-15] MEDS: TICAGRELOR 90 MG TABLET PO SCH (09:00)
[2021-04-15] MEDS: PANTOPRAZOLE SODIUM 40 MG DR TABLET PO SCH (09:00)
[2021-04-15] MEDS: METOPROLOL TARTRATE 25 MG TABLET PO SCH (09:00)
[2021-04-15] MEDS: ATORVASTATIN CALCIUM 40 MG TABLET PO SCH (09:00)
[2021-04-15] MEDS: ASPIRIN 81 MG CHEWABLE TABLET PO SCH (09:00)
[2021-04-15] MEDS: DOCUSATE SODIUM 100 MG CAPSULE PO SCH (09:00)
[2021-04-15] MEDS: MICONAZOLE NITRATE 2% 142 GM CREAM [BAZA] TP SCH (09:19)
[2021-04-15 09:50] VITALS: BP 130/74
[2021-04-15 12:00] VITALS: BP 127/79
[2021-04-15 16:00] VITALS: BP 135/79
[2021-04-15] MEDS ORDERED: POTASSIUM CHLORIDE 10 MEQ in DEXTROSE 5%-0.45% SODIUM CHL 1,000 ML IV SCH (16:43)
== END 2021-04-15 18:55 | DRG 871 ==
LOC: EMS 13:05 → ICU 18:40
PROVIDERS: ADMIT Internal Medicine; ATTEND Internal Medicine
DX: A41.9 Sepsis, unspecified organism (principal); I21.4 Non-ST elevation (NSTEMI) myocardial infarction; I50.33 Acute on chronic diastolic (congestive) heart failure; R65.21 Severe sepsis with septic shock; J96.91 Respiratory failure, unspecified with hypoxia; N17.0 Acute kidney failure with tubular necrosis; N17.9 Acute kidney failure, unspecified; I13.0 Hypertensive heart and chronic kidney disease with heart failure and stage 1 through stage 4 chronic kidney disease, or unspecified chronic kidney disease; N39.0 Urinary tract infection, site not specified; I25.10 Atherosclerotic heart disease of native coronary artery without angina pectoris; E78.5 Hyperlipidemia, unspecified; J45.909 Unspecified asthma, uncomplicated; D64.9 Anemia, unspecified; E83.39 Other disorders of phosphorus metabolism; N18.9 Chronic kidney disease, unspecified; Z20.822 Contact with and (suspected) exposure to COVID-19; N40.0 Benign prostatic hyperplasia without lower urinary tract symptoms; E83.51 Hypocalcemia; K21.9 Gastro-esophageal reflux disease without esophagitis; Z79.899 Other long term (current) drug therapy; Z79.82 Long term (current) use of aspirin; Z86.73 Personal history of transient ischemic attack (TIA), and cerebral infarction without residual deficits; Z87.891 Personal history of nicotine dependence; Z95.5 Presence of coronary angioplasty implant and graft; Z59.0 Homelessness
CPT/HCPCS: 36600; 70450; 71045; 71250; 76700; 76770; 80048; 80053; 81001; 81002; 82330; 82570; 82805; 83605; 83735; 83880; 84100; 84145; 84300; 84484; 84540; 85007; 85025; 85610; 85730; 87040; 87077; 87081; 87086; 87186; 87205; 87804; 92526; 92610; 93005; 93306; 94660; 99285; G0378; J0131; J0610; J0692; J1644; J1956; J2270; J2370; J2543; J3370; J3480; J3490; J7030; J7050; J7060; 36415-L1; 36415-TC; U0003; X7700